=== PATIENT | male | born 1995 | race Caucasian/White ===

== ENCOUNTER → 2019-11-29 11:15 | Outpatient (CLI) | payer BC | END | disposition home or self-care (01) | LOC: LAB 11:15 | DX: E78.49 Other hyperlipidemia (principal); E03.8 Other specified hypothyroidism ==

== ENCOUNTER 2021-06-05 08:46 | Outpatient (CLI) | payer OTHER | END 2021-06-05 08:53 | disposition home or self-care (01) | LOC: SONOGRAMA 08:46 → MAMO-SONO 06-06 07:15 | PROVIDERS: ATTEND Internal Medicine Gastroenterology | DX: R10.84 Generalized abdominal pain (principal) ==

== ENCOUNTER → 2024-12-05 07:28 | Outpatient (CLI) | payer OTHER ==
[2024-12-05 08:14] LABS: HEMOGLOBIN 14.8 g/dL (13-16.00); MEAN CELL VOLUME 84.3 fL (80.0-100.00); MEAN CORPUSCULAR HEMOGLOBIN 28.4 pg (27.00-32.0); MEAN CORPUSCULAR HGB CONC 33.7 g/dl (32.0-36.0); PLATELET COUNT 290 K/uL (150-450); RED BLOOD COUNT 5.22 M/uL (4.00-6.00); RED CELL DISTRIBUTION WIDTH 13.2 % (11.5-14.5)
[2024-12-05 09:01] LABS: BILIRUBIN TOTAL 0.72 mg/dL (0.3-1.2); CALCIUM 9.3 mg/dL (8.5-10.1); CREATININE SERUM 0.95 mg/dL (0.70-1.30); GFR 95.1; GLOBULINA 3.8 G/DL (2.4-3.5); POTASSIUM 4.44 mEq/L (3.5-5.1); T4 TOTAL 5.3 UG/DL (4.5-12.1); TOTAL PROTEIN 7.8 gm/dL (6.4-8.2); TSH 0.832 uIU/mL (0.358-3.74)
== END | disposition home or self-care (01) ==
LOC: LAB 07:28
DX: E03.9 Hypothyroidism, unspecified (principal)